=== PATIENT | female | born 1975 | race Caucasian/White ===

== ENCOUNTER 2022-10-10 13:39 | Emergency (ER) | payer MEDICARE, OTHER ==
[~2022-10-10] VITALS: Wt 111.1 kg
[~2022-10-10 13:39] MED LIST: AUGMENTIN 875875 MG PO; FLONASE 0.05% 121 EA NAS; MEDROL DOSEPAK4 MG PO; MUCINEX1200 MG PO; NAPROSYN500 MG PO; NKHM; NORCO 325 MG-51 TAB PO; PRILOSEC20 MG PO; TESSALON PERLE200 MG PO; ZANTAC 150150 MG PO; ZITHROMAX Z PA250 MG PO; ZITHROMAX250 MG PO
[2022-10-10] MEDS ORDERED: Motrin,Rufen800 MG PO (16:17)
[2022-10-10] MEDS ORDERED: MEDROL DOSEPAK4 MG PO (16:17)
== END 2022-10-10 16:33 | disposition home or self-care (01) ==
LOC: ED 13:39
DX: M77.8 Other enthesopathies, not elsewhere classified (principal); Z88.0 Allergy status to penicillin; Z98.890 Other specified postprocedural states